=== PATIENT | male | born 1995 | race Caucasian/White ===

== ENCOUNTER 2017-05-07 15:08 | Emergency (ER) | payer MEDICAID ==
[~2017-05-07] VITALS: Ht 154.9 cm; Wt 57.8 kg
[~2017-05-07 15:08] MED LIST: CIPR500T4 PO; METR500T PO; OXYC-281 PO
[2017-05-07 15:12] VITALS: Ht 154.9 cm; Wt 57.8 kg
[2017-05-07] MEDS ORDERED: ACETAMINOPHEN 500 MG TAB PO STA (17:58)
[2017-05-07] MEDS ORDERED: IBUPROFEN 200 MG TAB PO ONE (18:00)
[2017-05-07] MEDS ORDERED: OSLT75C PO (19:39)
[2017-05-07 19:41] VITALS: PULSE 52
[2017-05-07 20:25] VITALS: BP 127/68; RESP 17; TEMP 99
--- NOTE | 2017-05-07 23:40 | ERD ---
ER Documentation Chief Complaint Chief Complaint SORE THROAT , FEVER , BODY ACHE HPI This is a 21-year-old male presenting to the emergency department for sore throat, fever, chills, body aches x 2 days. Patient denies cough, shortness of breath or difficulty breathing. No wheezing. Denies chest pain or heart palpitations. Did not take any medications. Reports he snorted cocaine 1 week ago. ROS All systems reviewed and are negative except as per history of present illness. Medications Home Meds Active Scripts Oseltamivir Phosphate* (Tamiflu*) 75 Mg Capsule, 75 MG PO BID for 5 Days, CAP Prov:SEBASTIEN POP NP 05/07/17 Ciprofloxacin Hcl* (Ciprofloxacin Hcl*) 500 Mg Tablet, 500 MG PO BID, #28 TAB Prov:RAFAL MILLER MD 10/13/15 Oxycodone Hcl-Acetaminophen* (Percocet*) 5-325 Mg Tablet, 1 TAB PO Q4H Y for PAIN for 1 Day, #30 TAB Prov:RAFAL MILLER MD 10/13/15 Metronidazole* (Flagyl*) 500 Mg Tablet, 500 MG PO TID for 30 Days, TAB Prov:RAFAL MILLER MD 10/13/15 Allergies Allergies: Coded Allergies: No Known Allergy (Unverified , 10/07/15) PMhx/Soc History of Surgery: Yes (APPY) Anesthesia Reaction: No Hx Neurological Disorder: Yes (Epilepsy as a child) Hx Respiratory Disorders: No Hx Cardiac Disorders: No Hx Psychiatric Problems: Yes (ADHD) Hx Miscellaneous Medical Probl: No Hx Alcohol Use: Yes (OOC) Hx Substance Use: Yes (Marijuana, COCAINE) Hx Tobacco Use: No (QUIT 1 WEEK AGO) Smoking Status: Former smoker Physical Exam Vitals Vital Signs Date Time Temp Pulse Resp B/P Pulse Ox O2 Delivery O2 Flow Rate FiO2 05/07/17 20:25 99.0 17 127/68 99 Room Air 05/07/17 19:41 99.7 52 18 108/72 99 Room Air 05/07/17 15:12 100.8 96 18 144/85 99 Physical Exam Const: Alert, oriented to person place and time Head: Atraumatic Eyes: Normal Conjunctiva ENT: Normal External Ears, Nose and Mouth. TMs normal bilaterally. No erythema or exudate posterior pharynx. Neck: Full range of motion..~ No meningismus. Resp: Clear to auscultation bilaterally. No wheezing, rhonchi or crackles. No stridor or labored breathing. No intercostal retractions. Cardio: Regular rate and rhythm, no murmurs Abd: Soft, non tender, non distended. Normal bowel sounds Skin: No petechiae or rashes Back: No midline or flank tenderness Ext: No cyanosis, or edema Neur: Awake and alert Psych: Normal Mood and Affect Results 24 hrs Current Medications Medications (Trade) Dose Ordered Sig/Julian Route PRN Reason Start Time Stop Time Status Last Admin Dose Admin Acetaminophen (Tylenol Tab) 1,000 mg ONCE STAT PO 05/07/17 17:58 05/07/17 17:59 DC 05/07/17 18:10 Ibuprofen (Motrin) 400 mg ONCE ONCE PO 05/07/17 18:00 05/07/17 18:01 DC 05/07/17 18:10 Procedures/MDM MDM: This is a 21-year-old male presenting to the emergency department for sore throat fever, chills, body aches 2 days. Patient has temp of 100.8F upon arrival to ED with heart rate 96 bpm. Fever and heart rate trending down. No signs or symptoms of respiratory distress. Patient denies chest pain or heart palpitations. No chest pressure. No shortness of breath or difficulty breathing. Oxygen saturation 99% on room air with 18 respirations per minute. Patient given Tylenol and ibuprofen p.o. Influenza swab is negative. Upon reassessment, patient states symptoms have improved. Consulted Dr. Doni Collado regarding this patient and we agree that patient is appropriate for outpatient management. Patient is nontoxic and non-hypoxic appearing. Low suspicion for pneumonia, pleural effusion, pneumothorax or acute MA. Differential diagnosis includes but not limited to URI, influenza, otitis media , otitis externa, asthma exacerbation, croup, bronchitis, bronchiolitis and costochondritis. Patient is appropriate for outpatient management and will be given prescription for Tamiflu. Instructed patient to follow-up with primary care provider in the next 2-3 days for reassessment and additional management. Return to ED for any high fever, chest pain, difficulty breathing, shortness breath, wheezing, vomiting, diarrhea, abdominal pain or any new or worsening symptoms. Patient verbalizes understanding. All questions answered at discharge. Disclaimer: Inadvertent spelling and grammatical errors are likely due to EHR/ dictation software use and do not reflect on the overall quality of patient care. Also, please note that the electronic time recorded on this note does not necessarily reflect the actual time of the patient encounter. Departure Diagnosis: Primary Impression: Influenza-like symptoms Condition: Stable Patient Instructions: Influenza (Adult) Referrals: [facility] YOU HAVE RECEIVED A MEDICAL SCREENING EXAM AND THE RESULTS INDICATE THAT YOU DO NOT HAVE A CONDITION THAT REQUIRES URGENT TREATMENT IN THE EMERGENCY DEPARTMENT. FURTHER EVALUATION AND TREATMENT OF YOUR CONDITION CAN WAIT UNTIL YOU ARE SEEN IN YOUR DOCTORS OFFICE WITHIN THE NEXT 1-2 DAYS. IT IS YOUR RESPONSIBILITY TO MAKE AN APPOINTMENT FOR FOLOW-UP CARE. IF YOU HAVE A PRIMARY DOCTOR --you should call your primary doctor and schedule an appointment IF YOU DO NOT HAVE A PRIMARY DOCTOR YOU CAN CALL OUR PHYSICIAN REFERRAL HOTLINE AT IF YOU CAN NOT AFFORD TO SEE A PHYSICIAN YOU CAN CHOSE FROM THE FOLLOWING [facility] [id number] [address] [facility] [address] [employer] [facility]. [facility] [address] [facility] [address] [facility] [address] [facility]. [facility]. [address] [facility]. [facility] YOU HAVE RECEIVED A MEDICAL SCREENING EXAM AND THE RESULTS INDICATE THAT YOU DO NOT HAVE A CONDITION THAT REQUIRES URGENT TREATMENT IN THE EMERGENCY DEPARTMENT. FURTHER EVALUATION AND TREATMENT OF YOUR CONDITION CAN WAIT UNTIL YOU ARE SEEN IN YOUR DOCTORS OFFICE WITHIN THE NEXT 1-2 DAYS. IT IS YOUR RESPONSIBILITY TO MAKE AN APPOINTMENT FOR FOLOW-UP CARE. IF YOU HAVE A PRIMARY DOCTOR --you should call your primary doctor and schedule and appointment IF YOU DO NOT HAVE A PRIMARY DOCTOR YOU CAN CALL OUR PHYSICIAN REFERRAL HOTLINE AT . IF YOU CAN NOT AFFORD TO SEE A PHYSICIAN YOU CAN CHOSE FROM THE FOLLOWING [facility]: [facility] [address] [place] [address] [facility] [address] [place] [address] [facility] [address] [place] [address] Additional Instructions: Call your primary care doctor TOMORROW for an appointment during the next 2-3 days.See the doctor sooner or return here if your condition worsens before your appointment time. Return to ED for any high fever, chest pain, difficulty breathing, shortness breath, wheezing, vomiting, diarrhea, abdominal pain or any new or worsening symptoms. SEBASTIEN POP NP May 07, 2017 23:40
== END 2017-05-07 20:26 | disposition home or self-care (01) ==
LOC: FTE 15:08
DX: J02.9 Acute pharyngitis, unspecified (principal); R50.9 Fever, unspecified; R52 Pain, unspecified; Z87.891 Personal history of nicotine dependence
CPT/HCPCS: 87400; 87880; Z7502; Z7610; 99283

== ENCOUNTER 2017-09-16 15:27 | Emergency (ER) | END 2017-09-16 17:24 | disposition home or self-care (01) ==